=== PATIENT | female | born 1990 | race Caucasian/White ===

== ENCOUNTER 2023-05-08 12:38 | Emergency (ER) | payer OTHER, SELFPAY ==
[2023-05-08 12:43] VITALS: BP 125/98; PULSE 100; RESP 20; TEMP 37; O2SAT 99; BMI 35.0
--- NOTE | 2023-05-08 12:53 | PC.NURSE ---
Tongue dry with white coating.
--- NOTE | 2023-05-08 13:59 | ED_ITS ---
HPI - General Adult General Chief complaint: Dental/Oral Stated complaint: SORE THROAT Time Seen by Provider: 05/08/23 12:40 Source: patient Mode of arrival: walk-in Limitations: no limitations History of Present Illness HPI narrative: 33-year-old female presents with chief compliant of thrush to tongue. she also states she has had vaginal discharge for past several days.pt states concerned for possible std after spouse was found to be with someone else. she states she had been treated for thrush in january with an oral disintegrating pill. symptoms resolved for several days and then returned. pt states she now feels thrush is worse and has drainage vaginally. pt afebrile, denies history of Related Data Home Medications Medication Instructions Recorded Confirmed No Known Home Medications 05/08/23 05/08/23 Allergies Allergy/AdvReac Type Severity Reaction Status Date / Time No Known Drug Allergies Allergy Verified 05/08/23 12:43 Review of Systems ROS Narrative All Systems are negative except as noted/marked.All systems reviewed and otherwise negative PFSH PFSH Social History Smoking status: Current every day smoker Exam Narrative Exam Narrative: Nurses note and vital signs reviewed and patient is not hypoxic. General: The patient appears well and in no apparent distress. Patient is resting comfortably on cart. Skin: Warm, dry, no pallor noted. There is no rash noted. Head: Normocephalic, atraumatic Eye: Normal conjunctiva, no drainage, EOMI. PERRL Ears, Nose, Mouth, and Throat: thrush,oral mucosa is moist. Nares patent. Mouth without vesicles. Ear canals patent. Tm's without Erythema Cardiovascular: Regular Rate and Rhythm Respiratory: Patient is in no distress, no accessory muscle use, lungs are clear to auscultation, no wheezing, rales or rhonchi Back: non-tender, no CVA tenderness bilaterally to percussion. moderated copious vaginal discharge no cervical motion tenderness, nno masses or bleeding Neurological: A&O x4, normal speech Psychiatric: Cooperative Constitutional Vital Signs, click to edit/add: Last Vital Signs Temp 98.6 F 05/08/23 12:43 Pulse 100 H 05/08/23 12:43 Resp 20 05/08/23 12:43 BP 125/98 H 05/08/23 12:43 Pulse Ox 99 05/08/23 12:43 O2 Del Method Room Air 05/08/23 12:43 Course Vital Signs Vital signs: Vital Signs Temperature 98.6 F 05/08/23 12:43 Pulse Rate 100 H 05/08/23 12:43 Respiratory Rate 20 05/08/23 12:43 Blood Pressure 125/98 H 05/08/23 12:43 Pulse Oximetry 99 05/08/23 12:43 Oxygen Delivery Method Room Air 05/08/23 12:43 Temperature 98.6 F 05/08/23 12:43 Pulse Rate 100 H 05/08/23 12:43 Respiratory Rate 20 05/08/23 12:43 Blood Pressure 125/98 H 05/08/23 12:43 Pulse Oximetry 99 05/08/23 12:43 Oxygen Delivery Method Room Air 05/08/23 12:43 Medical Decision Making MDM Narrative Medical decision making narrative: 33-year-old female presents with chief compliant of thrush to tongue. she also states she has had vaginal discharge for past several days.pt states concerned for possible std after spouse was found to be with someone else. she states she had been treated for thrush in january with an oral disintegrating pill. symptoms resolved for several days and then returned. pt states she now feels thrush is worse and has drainage vaginally. pt afebrile, denies history of Vaginal cultures were obtained, mod amount of vaginal discharge noted. pt is concerned for std, pt will be treated with rocephin and zithromax. pt will be treated for oral thrush with diflucan one today and repeat in 2 days. pt will also be treated for BV with a prescription of flagyl. pt aware of diagnosis and agrees with plan of care. she will follow up with Dr Mo minor in next week if needed Medical Records Medical records reviewed: Yes I reviewed the patient's medical records Lab Data Lab results reviewed: Yes I reviewed the patient's lab results Labs: Lab Results 05/08/23 05/08/23 Range/Units 13:25 13:35 Urine Color Yellow (YELLOW) Urine Clarity Cloudy A (CLEAR) Urine pH 7.0 (5.0-9.0) Ur Specific [place] 1.020 (1.005-1.025) Urine Protein 30 A (NEG/TRACE) mg/dL Urine Glucose (UA) 100 A (NEGATIVE) mg/dL Urine Ketones Trace A (NEGATIVE) mg/dL Urine Occult Blood Negative (NEGATIVE) Urine Nitrite Negative (NEGATIVE) Urine Bilirubin Small A (NEGATIVE) Urine Urobilinogen >=8.0 (0.2-1.0) EU/dL Ur Leukocyte Esterase Moderate A (NEGATIVE) Urine RBC 2-5 A (0-2) #/HPF Urine WBC 10-20 A (NONE SEEN) #/HPF Ur Squamous Epith Cells Many A (NONE/RARE) #/LPF Urine Crystals None seen (None Seen) #/HPF Urine Bacteria Moderate A (NONE SEEN) #/HPF Urine Casts None seen (NONE SEEN) #/LPF Urine Mucus Large A (NONE SEEN) Urine Trichomonas Seen A (NONE SEEN) Urine HCG, Qual Negative (NEGATIVE) Discharge Plan Discharge Chief Complaint: Dental/Oral Clinical Impression: Candidiasis of mouth, Vaginal discharge Patient Disposition: Home, Self-Care Time of Disposition Decision: 14:19 Condition: Good Prescriptions / Home Meds: No Action No Known Home Medications Instructions: Oral Candidiasis (ED), Vaginal Discharge (ED) Stand Alone Forms: Portal Instructions Referrals: Dylan Hassan DO [Physician] - 1 week CRICKET DAVIS [Primary Care Provider] - 1 week Discharge Date/Time: 05/08/23 14:36
[2023-05-08 14:04] LABS: HCG Qualitative Urine* NEGATIVE (NEGATIVE)
[2023-05-08 14:05] LABS: Bilirubin Urine SMALL (NEGATIVE); Blood Urine NEGATIVE (NEGATIVE); Clarity Urine CLOUDY (CLEAR); Color Urine YELLOW (YELLOW); Glucose Urine UA 100 mg/dL (NEGATIVE); Ketones Urine TRACE mg/dL (NEGATIVE); Leukocyte Esterase Urine MODERATE (NEGATIVE); Nitrite Urine NEGATIVE (NEGATIVE); Protein Urine 30 mg/dL (NEG/TRACE); Urobilinogen Urine >=8.0 EU/dL (0.2-1.0)
[2023-05-08 14:17] LABS: Bacteria Urine MODERATE #/HPF (NONE SEEN); Cast Seen? NONE SEEN #/LPF (NONE SEEN); Crystals Seen? None Seen #/HPF (None Seen); Mucus Urine LARGE (NONE SEEN); Squamous Epithelial Cell Urine MANY #/LPF (NONE/RARE); Trichomonas Urine SEEN (NONE SEEN)
[2023-05-08] MEDS: AZITHROMYCIN 250 MG TABLET 1000 MG PO (14:21)
[2023-05-08] MEDS: CEFTRIAXONE 500 MG, LIDOCAINE HCL/PF 1 ML IM (14:21)
[2023-05-12 00:06] LABS: Neisseria gonorrhoeae, NAA Negative (Negative)
== END 2023-05-08 14:36 | disposition home or self-care (01) ==
PROVIDERS: Physician Assistant; Emergency Provider Emergency Medicine; PCP Family Medicine
DX: N89.8 Other specified noninflammatory disorders of vagina (principal); B37.0 Candidal stomatitis; F17.210 Nicotine dependence, cigarettes, uncomplicated
CPT/HCPCS: 81001; 84703; 87210; 87491; 87591; 99284

== ENCOUNTER 2023-10-07 12:54 | Emergency (ER) | payer OTHER, SELFPAY ==
[2023-10-07 12:59] VITALS: BP 168/105; PULSE 76; TEMP 37.1; O2SAT 97; BMI 33.5
--- NOTE | 2023-10-07 13:03 | XR_ITS ---
The [address] [address] Patient Name: CAIO BUTLER MRN: [id number] date: 1990 Sex: F Assigned Patient Location: ER Current Patient Location: ER Accession/Order Number: [id number] Exam Date: 10/07/2023 13:20 Report Date: 10/07/2023 13:48 At the request of: MONICA HARTMAN Procedure: XR elbow RT min 3V PROCEDURE: XR humerus RT, XR elbow RT min 3V COMPARISON: None. HISTORY: Right humerus and elbow pain, after falling down steps FINDINGS: BONES:No fracture, acute abnormality, or significant arthropathy. SOFT TISSUES:Negative. No visible soft tissue swelling. EFFUSION:None visible. OTHER: Negative. XR/XR elbow RT min 3V IMPRESSION: No acute fracture or dislocation of the humerus or elbow Electronically authenticated by: TAYLOR GIRALDO Date: 10/07/2023 13:48
--- NOTE | 2023-10-07 13:03 | XR_ITS ---
The [address] [address] Patient Name: CAIO BUTLER MRN: [id number] date: 1990 Sex: F Assigned Patient Location: ER Current Patient Location: ER Accession/Order Number: [id number] Exam Date: 10/07/2023 13:20 Report Date: 10/07/2023 13:48 At the request of: MONICA HARTMAN Procedure: XR humerus RT PROCEDURE: XR humerus RT, XR elbow RT min 3V COMPARISON: None. HISTORY: Right humerus and elbow pain, after falling down steps FINDINGS: BONES:No fracture, acute abnormality, or significant arthropathy. SOFT TISSUES:Negative. No visible soft tissue swelling. EFFUSION:None visible. OTHER: Negative. XR/XR humerus RT IMPRESSION: No acute fracture or dislocation of the humerus or elbow Electronically authenticated by: TAYLOR GIRALDO Date: 10/07/2023 13:48
--- NOTE | 2023-10-07 13:03 | XR_ITS ---
The [address] [address] Patient Name: CAIO BUTLER MRN: [id number] date: 1990 Sex: F Assigned Patient Location: ER Current Patient Location: ER Accession/Order Number: [id number] Exam Date: 10/07/2023 13:20 Report Date: 10/07/2023 13:57 At the request of: SHEKHAR JOHNSTON Procedure: XR ribs RT min 3V w CXR1V EXAMINATION: XR ribs RT min 3V w CXR1V HISTORY: fall COMPARISON: No relevant comparison available. FINDINGS: LUNGS: No significant pulmonary parenchymal abnormalities. PLEURA: No pneumothorax, effusion, or pleural thickening. MEDIASTINUM: No visible mass or adenopathy. CARDIAC: No cardiomegaly or cardiac silhouette abnormality. RIBS: No acute rib fracture OTHER: Negative. XR/XR ribs RT min 3V w CXR1V IMPRESSION: Clear lungs No acute rib fracture Electronically authenticated by: TAYLOR GIRALDO Date: 10/07/2023 13:57
--- NOTE | 2023-10-07 13:44 | ED.GENADUL1 ---
HPI HPI - General Adult General Chief complaint: Extremity Injury, Upper Stated complaint: FALL Time Seen by Provider: 10/07/23 13:15 Source: patient Mode of arrival: walk-in History of Present Illness HPI narrative: Patient is a 33-year-old female who presents to the emergency department for injuries after a fall yesterday. Patient states she fell on a stair on her right side and slid down approximately 10 stairs that were carpeted yesterday. She states she does not believe she hit her head and she knows she had no loss of consciousness. She has no pain to the head, neck, upper back today. She complains of right posterior and lateral rib pain as well as pain over the right humerus and elbow. She is right-hand dominant. She has no concern for . She is ambulatory. No medications taken prior to arrival. Related Data Previous Rx's ?Medication ?Instructions ?Recorded hydrocodone 5 mg-acetaminophen 325 1 tab PO Q6H PRN pain 3 days #12 10/07/23 mg tablet tabs ketorolac 10 mg tablet 10 mg PO TID PRN pain #10 tabs 10/07/23 methocarbamol 750 mg tablet 750 mg PO TID PRN pain #20 tabs 10/07/23 Allergies Allergy/AdvReac Type Severity Reaction Status Date / Time No Known Drug Allergies Allergy Verified 10/07/23 13:02 Opioid HPI Opioid Management Most Recent Opioid Data: Last Pain Scale 7 10/07/23 13:59 Last MAR Pain Assessment 10/07/23 13:59 Review of Systems ROS Constitutional Denies: fever or chills Ears, nose, mouth, and throat Denies: throat pain or nasal congestion Cardiovascular Denies: chest pain Respiratory Denies: shortness of breath or cough Gastrointestinal Denies: nausea or vomiting Musculoskeletal Reports: extremity pain, extremity swelling, joint pain and limited range of motion; Denies: back pain or neck pain Integumentary/Breast Denies: rash Neurological Denies: headache or weakness in extremities Hematologic/Lymphatic Denies: easy bruising or easy bleeding PFSH PFSH Social History Smoking status: Current every day smoker Exam Narrative Exam Narrative: Gen.: Awake, alert, in no distress Head: Normocephalic, atraumatic ENT: Moist mucous membranes, C-spine nontender with full range of motion Respiratory: No respiratory distress, lungs clear bilaterally; No ecchymosis, crepitance or flail chest noted with diffuse tenderness of the right lateral and posterior rib Cardio: Regular rate and rhythm Gastrointestinal: Abdomen is soft, nondistended and nontender to palpation, Pelvis is stable and hips nontender Extremities: Tenderness of the right humerus and right elbow with elbow flexed. No obvious deformity. 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 2+ right radial pulse Psych: Normal mood and affect Neuro: No focal neuro deficit Skin: Warm, dry, intact Constitutional Vital Signs, click to edit/add: Last Vital Signs Temp 98.7 F 10/07/23 12:59 Pulse 76 10/07/23 12:59 Resp 16 10/07/23 12:59 BP 168/105 H 10/07/23 12:59 Pulse Ox 97 10/07/23 12:59 O2 Del Method Room Air 10/07/23 12:59 Course Vital Signs Vital signs: Vital Signs Temperature 98.7 F 10/07/23 12:59 Pulse Rate 76 10/07/23 12:59 Respiratory Rate 16 10/07/23 12:59 Blood Pressure 168/105 H 10/07/23 12:59 Pulse Oximetry 97 10/07/23 12:59 Oxygen Delivery Method Room Air 10/07/23 12:59 Temperature 98.7 F 10/07/23 12:59 Pulse Rate 76 10/07/23 12:59 Respiratory Rate 16 10/07/23 12:59 Blood Pressure 168/105 H 10/07/23 12:59 Pulse Oximetry 97 10/07/23 12:59 Oxygen Delivery Method Room Air 10/07/23 12:59 Medical Decision Making MDM Narrative Medical decision making narrative: X-rays reviewed by the radiologist with no evidence of rib fracture or fracture to the right humerus or elbow. Patient placed in a sling. Treated with NSAIDs in the ER she drove herself to the hospital. She is discharged with a short course of analgesics, muscle relaxants and NSAIDs. She is neurovascularly intact pre and post sling application. Follow-up with PCP and return to the ER if symptoms change or worsen. Medical Records Medical records reviewed: Yes I reviewed the patient's medical records Imaging Data Chest x-ray: Attestation: I have reviewed the pertinent imaging results. Radiologist's impression: ITS Impressions Elbow X-Ray 10/07/23 13:03 IMPRESSION: No acute fracture or dislocation of the humerus or elbow Electronically authenticated by: TAYLOR GIRALDO Date: 10/07/2023 13:48 Humerus X-Ray 10/07/23 13:03 IMPRESSION: No acute fracture or dislocation of the humerus or elbow Electronically authenticated by: TAYLOR GIRALDO Date: 10/07/2023 13:48 Ribs X-Ray 10/07/23 13:03 IMPRESSION: Clear lungs No acute rib fracture Electronically authenticated by: TAYLOR GIRALDO Date: 10/07/2023 13:57 Discharge Plan Discharge Stand Alone Forms: Portal Instructions Chief Complaint: Extremity Injury, Upper Clinical Impression: Chest wall contusion, Fall, Contusion of arm, right Patient Disposition: Home, Self-Care Time of Disposition Decision: 14:02 Condition: Good Prescriptions / Home Meds: New hydrocodone-acetaminophen 5-325 mg tablet 1 tab PO Q6H PRN (Reason: pain) 3 Days Qty: 12 0RF Rx Instructions: DX: S20.219A ketorolac 10 mg tablet 10 mg PO TID PRN (Reason: pain) Qty: 10 0RF methocarbamol 750 mg tablet 750 mg PO TID PRN (Reason: pain) Qty: 20 0RF Print Language: Syriac Instructions: Contusion in Adults (ED) Referrals: CRICKET DAVIS [Primary Care Provider] - 1 week
[2023-10-07] MEDS: KETOROLAC TROMETHAMINE 10 MG TABLET PO (13:59)
== END 2023-10-07 14:14 | disposition home or self-care (01) ==
PROVIDERS: Emergency Provider Emergency Medicine; PCP Family Medicine
DX: S20.211A Contusion of right front wall of thorax, initial encounter (principal); S40.021A Contusion of right upper arm, initial encounter; W10.9XXA Fall (on) (from) unspecified stairs and steps, initial encounter; F17.210 Nicotine dependence, cigarettes, uncomplicated
CPT/HCPCS: 71101; 73060; 73080; 99283